=== PATIENT | female | born 1990 | race Two or more races ===

== ENCOUNTER 2024-11-16 11:10 | Outpatient (AMB) | payer MEDICAID, SELFPAY ==
[2024-11-16 11:32] VITALS: BP 109/74; PULSE 90; RESP 18; TEMP 36.7; O2SAT 96; BMI 34.2
--- NOTE | 2024-11-16 11:32 | OBCLNT_ITS ---
Vital Signs 11/16/24 11:32 Height 1.63 m Height Method Stated Weight 90.378 kg Weight Measurement Method Standing Scale BMI 34.2 BP 109/74 Blood Pressure Source Automatic Cuff Blood Pressure Location Right Upper Arm Position Sitting Respiration 18 Pulse 90 Pulse Source Monitor Temp 98.1 F Temp Source Temporal Artery Scan Pulse Oximetry (%) 96 Oxygen Delivery Method Room Air Allergies/Home Meds Allergies & Medications Allergies No Known Allergies Allergy (Verified 11/16/24 11:33) Medication Reconciliation Unobtainable 11/16/24 [History Confirmed 11/16/24] Intake Visit Data Collection New Patient or Established: New Patient (never been to [facility]) Reason for Visit:: OBI TRANSFER Seen by Clinical Staff ONLY (RN/MA): No Berry Grower Required: Yes Berry Grower's name/title: TONYA ALEGRIA Do You Feel Safe at Home: Yes Authorities Contacted: N/A PCP or OBGYN visit in last 3 months: No Hx Now: Yes Are you currently on any form of Control: No Pain Present Currently: No Pain Scale Used: Dias-Langston/Numerical Pain scale:: 0 Smoking Status Smoking Status: Never smoker Questionnaires Covid-19 Vaccine Questionnaire Has patient been vacinated for Covid-19 Have you been vacinated for Covid-19: No PHQ-9 PHQ-2 Over the last 2 weeks, how often have you been bothered by any of the following problems? 1. Little interest or pleasure in doing things: not at all 2. Feeling down, depressed, or hopeless: not at all Total score: 0 PHQ-9 3. Trouble falling or staying asleep, or sleeping too much: Not at all 4. Feeling tired or having little energy: Not at all 5. Poor appetite or overeating: Not at all 6. Feeling bad about yourself - or that you are a failure or have let yourself or your family down: Not at all 7. Trouble concentrating on things, such as reading the newspaper or watching television: Not at all 8. Moving or speaking so slowly that other people could have noticed? - Or the opposite - being so fidgety or restless that you have been moving around a lot more than usual: not at all 9. Thoughts that you would be better off or of hurting yourself in some way: Not at all Total score: 0 If you checked off any problems, how difficult have these problems made it for you to do your work, take care of things at home, or get along with other people?: not difficult at all Source: Developed by Drs. Dimitri Horta, Lily Curry, Sukumar Mayo and colleagues, with an educational gray from [employer]. Depression screen completed yes Social History Living Situation History Marital Status: Lives With: Family Housing: House Tobacco History Smoking Status: Never smoker Second Hand Smoke Exposure: No Alcohol History Alcohol Intake: Never Domestic Abuse History Do You Feel Safe at Home: Yes History of Present Illness HPI Narrative Patient is a 34-year-old woman at 34 weeks and 1 day gestation, presenting for transfer of care from [facility]. Her medical history is significant for obesity, pre-existing type 2 diabetes mellitus, and a previous section. Last menstrual period was 03/22/2024, with an estimated due date of 12/27/2024. Patient is currently taking metformin 850 mg once daily, iron supplementation, and ASA 162 mg. Blood sugar logs show fasting levels between 90-100 and 2-hour postprandial levels between 100-107. Patient was initially considering a vaginal after (), but upon learning that [place] does not allow VBACs for patients with previous C-sections, she is now planning for a repeat . She was informed that pursuing a vaginal delivery would require referral to facilities in [place] or [place]. Patient reports active movement and denies any contractions. She has no current complaints or concerns and did not report any changes in her overall health status or daily functioning. Obstetric history includes 1 previous section and 1 spontaneous . Medical history also includes cholecystectomy. Patient has no known drug allergies and is Portuguese-speaking, requiring an hourly sign language interpreter. OB Initial Visit Menstrual History Menstrual reliability: unknown Flow: heavy Menstrual regularity: irregular Monthly: No Age at menarche: 13 On control pills at conception: No Exam General General Appearance: alert, in no apparent distress and healthy appearing Head Head exam: atraumatic Neck Neck exam: Present normal inspection and trachea midline Chest Chest inspection: Present normal inspection and symmetric chest wall rise External exam: Present normal external exam; Absent tenderness Neuro Neurological exam: Present oriented X3 Psych Psychiatric exam: Present normal affect and normal mood Office Procedures OB Clinic LOC & Office Proc's Nursing/Assessment Patient Status: Initial/New Patient OB Clinic Nursing Assessment: Medication Reconciliation, Update PMH in EMR and Vital Signs OB Clinic Coordination of Care: Complex Care and Chronic Disease 1-5, Consent,records obtained, informed consent, Education Simp Pt/Fam and Staff clarify orders Special Needs: Heart tones New Patient Charge New Patient Point Assignment: [id number] New Patient Point Charge: BARREL ASSEMBLER Level 3 ([id number]) Assessment & Plan Diagnosis / Problem List (1) Supervision of high risk , unspecified, third trimester: Status: Acute (2) Maternal care for unspecified type scar from previous delivery: Status: Acute Plan : - Patient is 34-year-old at 34 weeks 1 day gestation. - History of one prior section and one spontaneous . - Anatomy survey within normal limits, placenta accreta screening low risk. - Schedule repeat section for approximately 12/20/2024. - Follow up in 2 weeks. - Inform patient about option at alternative hospitals if desired. - Continue ASA 162 mg daily. - Continue iron supplementation. Type 2 Diabetes Mellitus: - Pre-existing condition with good glycemic control. - Recent fasting levels 90-100 mg/dL, 2-hour postprandial 100-107 mg/dL. - Continue metformin 850 mg once daily. - Continue monitoring blood glucose levels. Obesity: - History of obesity noted. - Continue to monitor weight gain during . - Provide dietary and exercise counseling as appropriate.
== END 2024-11-16 11:53 | disposition home or self-care (01) ==
LOC: HODSOBC 11:10
PROVIDERS: Supervising Provider Obstetrics & Gynecology; Visit Provider Obstetrics & Gynecology
DX: O09.293 Supervision of pregnancy with other poor reproductive or obstetric history, third trimester (principal); O34.219 Maternal care for unspecified type scar from previous cesarean delivery; Z3A.34 34 weeks gestation of pregnancy; O09.893 Supervision of other high risk pregnancies, third trimester; O24.113 Pre-existing type 2 diabetes mellitus, in pregnancy, third trimester; O99.213 Obesity complicating pregnancy, third trimester; Z79.84 Long term (current) use of oral hypoglycemic drugs
CPT/HCPCS: 99203; G0463

== ENCOUNTER 2024-11-23 08:33 | Outpatient (AMB) | payer MEDICAID, SELFPAY ==
[2024-11-23 08:59] VITALS: BP 115/81; PULSE 92; RESP 17; TEMP 36.6; O2SAT 96; BMI 34.3
--- NOTE | 2024-11-23 08:59 | AMB.OBVISIT ---
Vital Signs 11/23/24 08:59 Height 1.63 m Height Method Measured Weight 91.229 kg Weight Measurement Method Standing Scale BMI 34.3 BP 115/81 Blood Pressure Source Automatic Cuff Blood Pressure Location Right Upper Arm Position Sitting Respiration 17 Pulse 92 Pulse Source Monitor Temp 97.8 F Temp Source Temporal Artery Scan Pulse Oximetry (%) 96 Oxygen Delivery Method Room Air Allergies/Home Meds Allergies & Medications Allergies No Known Allergies Allergy (Verified 11/23/24 09:00) Medication Reconciliation Unobtainable 11/16/24 [History Confirmed 11/23/24] Intake Visit Data Collection New Patient or Established: Established Patient (seen at [facility] within 3 years) Reason for Visit:: OBC WEEKLY Consent obtained for Telemed Visit: No Seen by Clinical Staff ONLY (RN/MA): No Computer Equipment Installer Required: No Do You Feel Safe at Home: Yes Authorities Contacted: N/A PCP or OBGYN visit in last 3 months: Yes Date of Last PCP or OBGYN visit: 11/16/24 Hx Now: Yes Are you currently on any form of Control: No Pain Present Currently: No Pain Scale Used: Dias-Langston/Numerical Pain scale:: 0 Smoking Status Smoking Status: Never smoker Questionnaires Covid-19 Vaccine Questionnaire Has patient been vacinated for Covid-19 Have you been vacinated for Covid-19: Yes PHQ-9 PHQ-2 Over the last 2 weeks, how often have you been bothered by any of the following problems? 1. Little interest or pleasure in doing things: not at all PHQ-9 8. Moving or speaking so slowly that other people could have noticed? - Or the opposite - being so fidgety or restless that you have been moving around a lot more than usual: not at all Source: Developed by Drs. Dimitri Horta, Lily Curry, Sukumar Mayo and colleagues, with an educational gray from [employer]. Social History Living Situation History Lives With: Family Housing: House Tobacco History Smoking Status: Never smoker Second Hand Smoke Exposure: No Alcohol History Alcohol Intake: Never Domestic Abuse History Do You Feel Safe at Home: Yes Care OB Visit Log OB Flowsheet Initial Weight: Not Recorded Date <del>?</del> EGA Weight BP Alb Glu CTX Pres Fundal ht FHR Mov Dilation Station Effacement Hx Notes Visit Note 11/23/24 <del>?</del> 35w 1d 91.229 kg 115/81 absent unknown 36 145 active at 35w1d here for routine visit, scheduled for repeat 12/20/24. No CTX/LOF/VB, reports good FM. GBS swab collected. Counseled that not permitted at this facility but available at [facility] if desired. Plan: return in 2wks for final pre-op visit. Instructed to go to hospital if CTX q5min. CORRY Calculator Estimated Delivery Date Method Current WG Current Estimate 12/27/24 LMP (Certain) 35w 4d Office Procedures OB Clinic LOC & Office Proc's Nursing/Assessment Patient Status: Established Patient OB Clinic Nursing Assessment: Medication Reconciliation, Update PMH in EMR and Vital Signs OB Clinic Coordination of Care: Complex Care and Chronic Disease 1-5, Consent,records obtained, informed consent, Education Simp Pt/Fam and 4+ Authorizations needed Special Needs: Heart tones Established Patient Charge Established Patient Point Assignment: 130 Established Patient Point Charge: EP Level 4 (120-155) Assessment & Plan Diagnosis / Problem List (1) Maternal care for unspecified type scar from previous delivery: Status: Acute (2) Supervision of high risk , unspecified, third trimester: Status: Acute Plan Problem List - , 35 weeks and 1 day - History of section Assessment 34-year-old female at 35 weeks and 1 day gestation, presenting for routine OB-RN COMMUNITY visit. Patient is scheduled for repeat section on 12/20/2024. No reported contractions or other problems. movement is present. Group B Streptococcus (GBS) culture swab was performed during the visit. Patient is informed about the hospital's policy regarding vaginal after (). Plan - Scheduled for repeat on December 20, 2024 - Next appointment scheduled for the week after next, which will be the last appointment before the - Patient instructed to time contractions if they occur - Patient advised to go to the hospital if contractions occur every 5 minutes - Informed patient that vaginal delivery is not allowed at this hospital per policy, but is an option at [place]. 1. Progress Reviewed gestational age, growth, and heart rate. Planned frequent visits (every 2 weeks until 36 weeks, then weekly). 2. Instructed patient to monitor movements and report decreases immediately. 3. Testing Counseled on routine third-trimester labs per guidelines. Discussed potential need for ultrasound or monitoring based on risk factors. 4. Preeclampsia Precaution Educated on preeclampsia signs: severe headache, vision changes, right upper quadrant pain, sudden swelling. Advised urgent reporting of symptoms and discussed blood pressure monitoring if high risk. 5. Labor Precautions Reviewed labor signs: regular contractions, pelvic pressure, back pain, bleeding, or fluid leakage. Instructed to seek immediate care for these symptoms. 6. Lifestyle and Delivery Preparation Reinforced vitamins, nutrition, and safe activity. Discussed plan, pain management, and . Advised on labor preparation (e.g., hospital bag) and expectations. 7. Psychosocial Support Assessed emotional well-being and offered resources for mental health or parenting support.
== END 2024-11-23 09:54 | disposition home or self-care (01) ==
LOC: HODSOBC 08:33
PROVIDERS: Supervising Provider Obstetrics & Gynecology; Visit Provider Obstetrics & Gynecology
DX: O09.293 Supervision of pregnancy with other poor reproductive or obstetric history, third trimester (principal); O34.219 Maternal care for unspecified type scar from previous cesarean delivery; Z3A.35 35 weeks gestation of pregnancy
CPT/HCPCS: 99214; G0463

== ENCOUNTER 2024-12-03 14:46 | Outpatient (AMB) | payer MEDICAID, SELFPAY ==
[2024-12-03 15:09] VITALS: BP 119/78; PULSE 92; RESP 17; TEMP 36.7; O2SAT 97; BMI 34.3
--- NOTE | 2024-12-03 15:09 | OBCLNT_ITS ---
Vital Signs 12/03/24 15:09 Height 1.63 m Height Method Measured Weight 91.229 kg Weight Measurement Method Standing Scale BMI 34.3 BP 119/78 Blood Pressure Source Automatic Cuff Blood Pressure Location Right Upper Arm Position Sitting Respiration 17 Pulse 92 Pulse Source Monitor Temp 98.0 F Temp Source Temporal Artery Scan Pulse Oximetry (%) 97 Oxygen Delivery Method Room Air Allergies/Home Meds Allergies & Medications Allergies No Known Allergies Allergy (Verified 01/11/25 14:14) Medication Reconciliation vit no.95-ferrous fumarate 28 mg-folic acid 800 mcg tablet () 1 tab PO QDAY 12/17/24 [History Confirmed 01/11/25] hydrocodone 5 mg-acetaminophen 325 mg tablet 1 tab PO Q4HR Patient rated pain 7 to 8 #14 tabs 12/19/24 [Rx Confirmed 01/11/25] metformin 850 mg tablet 850 mg PO QDAY #30 tabs 12/19/24 [Rx Confirmed 01/11/25] Intake Visit Data Collection New Patient or Established: Established Patient (seen at [facility] within 3 years) Reason for Visit:: OBC Consent obtained for Telemed Visit: No Seen by Clinical Staff ONLY (RN/MA): No Student Affairs Vice President Required: No Do You Feel Safe at Home: Yes Authorities Contacted: N/A PCP or OBGYN visit in last 3 months: Yes Date of Last PCP or OBGYN visit: 11/23/24 Hx Now: Yes Are you currently on any form of Control: No Pain Present Currently: No Pain Scale Used: Dias-Langston/Numerical Pain scale:: 0 Smoking Status Smoking Status: Never smoker Questionnaires Covid-19 Vaccine Questionnaire Has patient been vacinated for Covid-19 Have you been vacinated for Covid-19: No PHQ-9 PHQ-2 Over the last 2 weeks, how often have you been bothered by any of the following problems? 1. Little interest or pleasure in doing things: not at all PHQ-9 8. Moving or speaking so slowly that other people could have noticed? - Or the opposite - being so fidgety or restless that you have been moving around a lot more than usual: not at all Source: Developed by Drs. Dimitri Horta, Lily Curry, Sukumar Mayo and colleagues, with an educational gray from [employer]. Social History Living Situation History Lives With: Family Housing: House Tobacco History Smoking Status: Never smoker Second Hand Smoke Exposure: No Alcohol History Alcohol Intake: Never Domestic Abuse History Do You Feel Safe at Home: Yes Care OB Visit Log OB Flowsheet Initial Weight: Not Recorded Date -?-?-?-?-?-?-?-?-?-?-?-?- EGA Weight BP Alb Glu CTX Pres Fundal ht FHR Mov Dilation Station Effacement Hx Notes Visit Note 11/23/24 -?-?-?-?-?-?-?-?-?-?-?-?- 35w 1d 91.229 kg 115/81 absent unknown 36 145 active at 35w1d here for routine visit, scheduled for repeat 12/20/24. No CTX/LOF/VB, reports good FM. GBS swab collected. Counseled that not permitted at this facility but available at [facility] if desired. Plan: return in 2wks for final pre-op visit. Instructed to go to hospital if CTX q5min. 12/03/24 -?-?-?-?-?-?-?-?-?-?-?-?- 36w 4d 91.229 kg 119/78 absent unknown 37 152 active History of prior delivery. No contractions, LOF, VB and reports goo d FM. Denies YOUNG, VC, and epigastric pain. - 34-year-old female, 2 para 1, presenting for routine visit at 36 weeks and 4 days gestation - History of previous - Scheduled for repeat on 2024 - Patient denies contractions or other p roblems - Reports baby is always active - No specific complaints or concerns mentioned Plan - Scheduled for repeat on 2024 - Follow-up appointment in 2 weeks for marcelino sullivan instructions - Provider to sales review clerk report a nd contact patient if additional recommendations - Patient instructed to go to hospital i f needed, at any time CORRY Calculator Estimated Delivery Date Method Current WG Current Estimate 12/27/24 LMP (Certain) 44w 6d Specific Issue/Plans MFM Ultrasound at 36w3d * Single live intrauterine at 36w3d (CORRY 12/27/2024) * Cephalic presentation * Large for gestational age (LGA) fetus with estimated weight (EFW) of 3868g (>99th percentile) * Abdominal circumference also >99th percentile * HC:AC ratio is normal (proportionately large fetus) * Projected EFW at 39 weeks: 4549g ? 454g * Mild polyhydramnios with STERLING 27.9 cm and single deepest pocket (SDP) 8.51 cm * anatomy: Normal as visualized * Placenta: Posterior; no previa (per prior exam) * Biophysical profile score: 12/17 (NST not included); reassuring status Office Procedures OB Clinic LOC & Office Proc's Nursing/Assessment Patient Status: Established Patient OB Clinic Nursing Assessment: Medication Reconciliation, Update PMH in EMR and Vital Signs OB Clinic Coordination of Care: Complex Care and Chronic Disease 1-5, Consent,records obtained, informed consent, Education Simp Pt/Fam and 4+ Authorizations needed Special Needs: Heart tones Established Patient Charge Established Patient Point Assignment: 130 Established Patient Point Charge: EP Level 4 (120-155) Assessment & Plan Diagnosis / Problem List (1) Maternal care for unspecified type scar from previous delivery: Status: Acute Qualifiers: Previous scar type: low transverse Qualified Code(s): O34.211 - Maternal care for low transverse scar from previous delivery Plan Problem List - , 36 weeks and 4 days gestation - History of section Assessment 36-year-old at 36 weeks and 4 days gestation presenting for routine visit. History of previous section. Scheduled for repeat section on 12/20/2024. Patient reports no contractions or other problems. heart rate auscultated at 152-153 bpm, within normal range. Patient reports normal movement. Plan - Scheduled for repeat on December 20, 2024 - Follow-up appointment in 2 weeks for surgery instructions - Provider to sales review clerk report and contact patient if additional recommendations - Patient instructed to go to hospital if needed, at any time 1. Progress Reviewed gestational age, growth, and heart rate. Planned frequent visits (every 2 weeks until 36 weeks, then weekly). 2. Instructed patient to monitor movements and report decreases immediately. 3. Testing Counseled on routine third-trimester labs per guidelines. Discussed potential need for ultrasound or monitoring based on risk factors. 4. Preeclampsia Precaution Educated on preeclampsia signs: severe headache, vision changes, right upper quadrant pain, sudden swelling. Advised urgent reporting of symptoms and discussed blood pressure monitoring if high risk. 5. Labor Precautions Reviewed labor signs: regular contractions, pelvic pressure, back pain, bleeding, or fluid leakage. Instructed to seek immediate care for these symptoms. 6. Lifestyle and Delivery Preparation Reinforced vitamins, nutrition, and safe activity. Discussed plan, pain management, and . Advised on labor preparation (e.g., hospital bag) and expectations. 7. Psychosocial Support Assessed emotional well-being and offered resources for mental health or parenting support.
== END 2024-12-03 15:42 | disposition home or self-care (01) ==
LOC: HODSOBC 14:46
PROVIDERS: Supervising Provider Obstetrics & Gynecology; Visit Provider Obstetrics & Gynecology
DX: O09.293 Supervision of pregnancy with other poor reproductive or obstetric history, third trimester (principal); Z3A.36 36 weeks gestation of pregnancy; O34.219 Maternal care for unspecified type scar from previous cesarean delivery
CPT/HCPCS: 99214; G0463

== ENCOUNTER 2024-12-17 09:31 | Outpatient (AMB) | payer MEDICAID, SELFPAY ==
[2024-12-17 10:09] VITALS: BP 134/88; PULSE 79; RESP 17; TEMP 36.4; O2SAT 97; BMI 35.2
--- NOTE | 2024-12-17 10:09 | OBCLNT_ITS ---
Vital Signs 12/17/24 10:09 Height 1.63 m Height Method Measured Weight 93.61 kg Weight Measurement Method Standing Scale BMI 35.2 BP 134/88 H Blood Pressure Source Automatic Cuff Blood Pressure Location Right Upper Arm Position Sitting Respiration 17 Pulse 79 Pulse Source Monitor Temp 97.5 F Temp Source Temporal Artery Scan Pulse Oximetry (%) 97 Oxygen Delivery Method Room Air Allergies/Home Meds Allergies & Medications Allergies No Known Allergies Allergy (Verified 02/22/25 14:13) Medication Reconciliation vit no.95-ferrous fumarate 28 mg-folic acid 800 mcg tablet () 1 tab PO QDAY 12/17/24 [History Confirmed 02/22/25] metformin 850 mg tablet 850 mg PO QDAY #30 tabs 12/19/24 [Rx Confirmed 02/22/25] Intake Visit Data Collection New Patient or Established: Established Patient (seen at [facility] within 3 years) Reason for Visit:: OBC Consent obtained for Telemed Visit: No Seen by Clinical Staff ONLY (RN/MA): No Outsole Skiver Required: No Do You Feel Safe at Home: Yes Authorities Contacted: N/A PCP or OBGYN visit in last 3 months: Yes Date of Last PCP or OBGYN visit: 12/03/24 Hx Now: Yes Are you currently on any form of Control: No Pain Present Currently: No Pain Scale Used: Dias-Langston/Numerical Pain scale:: 0 Smoking Status Smoking Status: Never smoker Questionnaires Covid-19 Vaccine Questionnaire Has patient been vacinated for Covid-19 Have you been vacinated for Covid-19: No PHQ-9 PHQ-2 Over the last 2 weeks, how often have you been bothered by any of the following problems? 1. Little interest or pleasure in doing things: not at all PHQ-9 3. Trouble falling or staying asleep, or sleeping too much: Not at all 4. Feeling tired or having little energy: Not at all 5. Poor appetite or overeating: Not at all 6. Feeling bad about yourself - or that you are a failure or have let yourself or your family down: Not at all 7. Trouble concentrating on things, such as reading the newspaper or watching television: Not at all 8. Moving or speaking so slowly that other people could have noticed? - Or the opposite - being so fidgety or restless that you have been moving around a lot more than usual: not at all 9. Thoughts that you would be better off or of hurting yourself in some way: Not at all If you checked off any problems, how difficult have these problems made it for you to do your work, take care of things at home, or get along with other people?: not difficult at all Source: Developed by Drs. Dimitri Horta, Lily Curry, Sukumar Mayo and colleagues, with an educational gray from [employer] Social History Living Situation History Lives With: Family Housing: House Tobacco History Smoking Status: Never smoker Second Hand Smoke Exposure: No Alcohol History Alcohol Intake: Never Domestic Abuse History Do You Feel Safe at Home: Yes Care OB Visit Log OB Flowsheet Initial Weight: Not Recorded Date -?-?-?-?-?-?-?-?-?-?-?-?- EGA Weight BP Alb Glu CTX Pres Fundal ht FHR Mov Dilation Station Effacement Hx Notes Visit Note 11/23/24 -?-?-?-?-?-?-?-?-?-?-?-?- 35w 1d 91.229 kg 115/81 absent unknown 36 145 active at 35w1d here for routine visit, scheduled for repeat 12/20/24. No CTX/LOF/VB, reports good FM. GBS swab collected. Counseled that not permitted at this facility but available at [facility] if desired. Plan: return in 2wks for final pre-op visit. Instructed to go to hospital if CTX q5min. 12/03/24 -?-?-?-?-?-?-?-?-?-?-?-?- 36w 4d 91.229 kg 119/78 absent unknown 37 152 active History of prior delivery. No contractions, LOF, VB and reports goo d FM. Denies YOUNG, VC, and epigastric pain. - 34-year-old female, 2 para 1, presenting for routine visit at 36 weeks and 4 days gestation - History of previous - Scheduled for repeat on 2024 - Patient denies contractions or other p roblems - Reports baby is always active - No specific complaints or concerns mentioned Plan - Scheduled for repeat on 2024 - Follow-up appointment in 2 weeks for marcelino sullivan instructions - Provider to review nurse report a nd contact patient if additional rec ommendations - Patient instructed to go to hospital i f needed, at any time 12/17/24 -?-?-?-?-?-?-?-?-?-?-?-?- 38w 4d 93.61 kg 134/88 absent unknown 39 155 active - Annamarie Thao is a female patient at 38 weeks and 4 days gestation presenting for routine care. - She is scheduled for a repeat C-sectio n on Friday, December 20, 2024. - Preoperative instructions were provide d to the patient. - Patient will arrive at the scheduled time for the procedure. - Repeat C- section scheduled for 12-20-2024 - Preoperative instructions given - Patient to arrive as per scheduled francisco e CORRY Calculator Estimated Delivery Date Method Current WG Current Estimate 12/27/24 LMP (Certain) 48w 1d Specific Issue/Plans MFM Ultrasound at 36w3d * Single live intrauterine at 36w3d (CORRY 12/27/2024) * Cephalic presentation * Large for gestational age (LGA) fetus with estimated weight (EFW) of 3868g (>99th percentile) * Abdominal circumference also >99th percentile * HC:AC ratio is normal (proportionately large fetus) * Projected EFW at 39 weeks: 4549g ? 454g * Mild polyhydramnios with STERLING 27.9 cm and single deepest pocket (SDP) 8.51 cm * anatomy: Normal as visualized * Placenta: Posterior; no previa (per prior exam) * Biophysical profile score: 8/8 (NST not included); reassuring status Assessment & Plan Diagnosis / Problem List (1) Maternal care for unspecified type scar from previous delivery: Status: Acute Qualifiers: Previous scar type: low transverse Qualified Code(s): O34.211 - Maternal care for low transverse scar from previous delivery Plan Problem List - - Scheduled repeat section Assessment Routine care visit at 38 weeks and 4 days gestation. Patient is scheduled for a repeat section. Plan - Repeat scheduled for 12-20-2024 - Preoperative instructions given - Patient to arrive as per scheduled time 1. Progress Reviewed gestational age, growth, and heart rate. Planned frequent visits (every 2 weeks until 36 weeks, then weekly). 2. Instructed patient to monitor movements and report decreases immediately. 3. Testing Counseled on routine third-trimester labs per guidelines. Discussed potential need for ultrasound or monitoring based on risk factors. 4. Preeclampsia Precaution Educated on preeclampsia signs: severe headache, vision changes, right upper quadrant pain, sudden swelling. Advised urgent reporting of symptoms and discussed blood pressure monitoring if high risk. 5. Labor Precautions Reviewed labor signs: regular contractions, pelvic pressure, back pain, bleeding, or fluid leakage. Instructed to seek immediate care for these symptoms. 6. Lifestyle and Delivery Preparation Reinforced vitamins, nutrition, and safe activity. Discussed plan, pain management, and . Advised on labor preparation (e.g., hospital bag) and expectations. 7. Psychosocial Support Assessed emotional well-being and offered resources for mental health or parenting support.
== END 2024-12-17 10:28 | disposition home or self-care (01) ==
LOC: HODSOBC 09:31
PROVIDERS: Supervising Provider Obstetrics & Gynecology; Visit Provider Obstetrics & Gynecology
DX: O09.293 Supervision of pregnancy with other poor reproductive or obstetric history, third trimester (principal); O34.219 Maternal care for unspecified type scar from previous cesarean delivery; Z3A.38 38 weeks gestation of pregnancy
CPT/HCPCS: 99213; G0463

== ENCOUNTER 2024-12-17 19:50 | Inpatient (IN) | payer MEDICAID, SELFPAY ==
[2024-12-17] VITALS (18 sets, daily range): BP systolic 119–139; BP diastolic 80–91; PULSE 64–82; RESP 18–98; TEMP 36.5–37.6; O2SAT 91–100; BMI 36.8
[2024-12-17 20:41] LABS: ROM Kit Lot # 5810237
[2024-12-17 20:42] LABS: ROM Swab Mixed By: YOUMB; Swb Mxed in Solvent 1 min? Yes
[2024-12-17 20:49] LABS: Rupture of Fetal Membranes Positive (Negative)
[2024-12-17] MEDS: RINGERS LACTATED 1000 ML 1,000 ML 100 ML IV (21:15)
[2024-12-17] MEDS: CITRIC ACID/SODIUM CITR 15 ML UDC (BICITRA) 30 ML PO (21:23)
[2024-12-17 21:24] LABS: Collection Type, Urine Clean Catch
[2024-12-17] MEDS: ceFAZolin/D5W 2 GM IV 2 GM/100 ML BAG IV (21:25)
[2024-12-17] MEDS: FAMOTIDINE INJ 10 MG/ML VIAL 2 ML 20 MG IV (21:26)
[2024-12-17] MEDS: METOCLOPRAMIDE INJ 5 MG/ML VIAL 2 ML 10 MG IVP (21:30)
[2024-12-17 21:35] LABS: Basophils # (Auto) 0.0 Thou/mm3 (0.0-0.2); Basophils % (Auto) 0 % (0-2.5); Eosinophils # (Auto) 0.0 Thou/mm3 (0.0-0.5); Eosinophils % (Auto) 0 % (0-10); Hematocrit 35.3 % (36.0-46.0); Hemoglobin 11.7 g/dL (12.0-16.0); Immature Granulocytes Auto 0.04 Thou/mm3 (0.00-0.00); Lymphocytes # (Auto) 1.8 Thou/mm3 (1.0-4.8); Lymphocytes % (Auto) 26 % (10-50); Mean Corpuscular HGB Conc 33.1 g/dl (31.0-37.0); Mean Corpuscular Hemoglobin 31.0 pg (25.0-35.0); Mean Corpuscular Volume 94 fL (80-100); Monocytes # (Auto) 0.6 Thou/mm3 (0.0-0.8); Monocytes % (Auto) 8 % (0-12); Neutrophils # (Auto) 4.6 Thou/mm3 (1.8-7.7); Neutrophils % (Auto) 66 % (37-80); Nucleated Red Blood Cell # 0.03 Thou/mm3 (0.00-0.00); Nucleated Red Blood Cell % 0 /100 WBC (0); Platelet Count 195 Thou/mm3 (140-440); RDW Standard Deviation 47.6 fL (36.4-46.3); Red Blood Count 3.77 Miln/mm3 (4.00-5.20); White Blood Count 6.9 Thou/mm3 (3.6-11.0)
[2024-12-17 21:43] LABS: Alanine Aminotransferase 22 U/L (10-49); Albumin, Serum 3.6 gm/dL (3.5-5.0); Albumin/Globulin Ratio 1.3 (1.2-2.2); Alkaline Phosphatase 276 U/L (46-116); Anion Gap 13 (7-16); Aspartate Amino Transferase 40 U/L (0-34); BUN/Creatinine Ratio 10 Ratio (12-20); Bilirubin,Total 0.9 mg/dL (0.3-1.2); Blood Urea Nitrogen 10 mg/dL (9-23); Calcium 9.0 mg/dL (8.3-10.6); Calcium (Corrected) 9.3 mg/dL (8.5-10.1); Carbon Dioxide 21.1 mMol/L (20.0-31.0); Chloride 106 mMol/L (98-107); Creatinine (Component) 1.0 mg/dL (0.6-1.3); Estimated Creatinine Clearance 86.6 mL/min (>60); Globulin 2.7 gm/dL (2.3-3.5); Glucose 150 mg/dL (74-106); LDH (Lactate Dehydrogenase) 177 U/L (120-246); Osmolality,Calculated 281 (275-295); Potassium 4.0 mMol/L (3.4-5.1); Sodium 140 mMol/L (136-145); Total Protein 6.3 gm/dL (5.7-8.2); Uric Acid 7.1 mg/dL (3.1-7.8); eGFR > 60 See Note
[2024-12-17 21:47] LABS: Amorphous Crystals,Urine Present (Absent); Bacteria,Urine Rare; Bilirubin,Urine Negative (Negative); Blood,Urine 1+ (Negative); Clarity,Urine Turbid (Clear/Hazy); Color,Urine Yellow (Lt Yel-Yel); Glucose, Urine Negative (Negative); Ketones,Urine Negative (Negative); Leukocyte Esterase,Urine Positive (Negative); Nitrite,Urine Negative (Negative); PH,Urine 7.0 (5.0-7.0); Protein,Urine Trace (Neg - Trace); RBC,Urine 15 /hpf (0-3); Specific Gravity,Urine 1.007 (1.001-1.035); Squamous Epithelial Cell,Urine 9 /hpf (0-5); Urobilinogen,Urine Negative mg/dL (0.0-1.0); WBC,Urine 12 /hpf (0-5)
[2024-12-17 21:48] LABS: Fibrinogen 538 mg/dL (175-375); INR 0.9 (0.9-1.3); Partial Thromboplastin Time 24.5 Seconds (22.0-36.0); Prothrombin Time 10.4 Seconds (9.0-12.2)
[2024-12-17 22:15] LABS: Creatinine,Random Urine 67 mg/dL (30-125); Protein Total, Random Urine 34 mg/dL (1-14)
[2024-12-17 22:16] LABS: Syphilis Nonreactive (Nonreactive)
[2024-12-17 22:20] LABS: HIV (1&2) Antibody Rapid Non-Reactive
--- NOTE | 2024-12-17 22:58 | PD.LDHP ---
Documentation for date of: 12/17/24 OB Labor/Induct. HPI History of Present Illness Chief complaint: Ruptured membranes, previous : 4 Para: 1 Term pregnancies: 1 pregnancies: 0 Living children: 1 History of Abortions: Spontaneous and Elective: 2 History of Vaginal deliveries: 0 History of sections: Yes History of : No CORRY: 12/27/24 Gestational Age (weeks): 38 Gestational Age (days): 4 History of present illness: The patient is a 34-year-old -0-2-1 at 38-4/7 weeks with an EDC of 12/27/2024 who presented reporting ruptured membranes at 1900 on 12/17/2024 . Patient has a history of a previous . care was started with Dr. Godfrey and transferred to Dr. Vasquez at 34 weeks. She is a qoi-qgrnslf-fsfdwinks diabetic on metformin prior to . Her hemoglobin A1c's during were 5.6-6.0. Patient was scheduled next week for a repeat . She was found to be eric on the monitor and grossly ruptured with meconium stained fluid and was consented for repeat low-transverse section. Of note the patient is Frisian-speaking only and all consents were obtained through an official health technical writer service. History of Present Dating criteria: LMP confirmed by 2nd trimester US Adequate Care: Yes Ultrasounds: normal mid trimester US Abnormal ultrasound findings: Normal and echo level 2 ultrasound Obstetrical complications: other (Suspected large for gestational age ) Medical complications: other (Pre-existing yat-hhndmjh-cmhwgeojp diabetes on metformin) Labs Maternal Blood Type: B Pos Labs: Positive: Rubella Titre, Negative: RPR, Hepatitis B, HIV and Group Beta Strep and Unknown: Chlamydia, Gonorrhea, Herpes Type 1, Herpes Type 2 and Covid-19 Past Medical History Surgical History SURGICAL: Positive Section Past Medical History Comments PMH COMMENT: Patient had a cyst history of x 1 in [place] in 2019 she had a history of a gallbladder removal in 2019 she is a blt-tjxvhtj-mhrpkusma diabetic on metformin prior to . Meds Home Medications and Allergies Home Medications ?Medication ?Instructions ?Recorded ?Confirmed ?Type metformin 850 mg tablet 850 mg PO QDAY 12/17/24 12/17/24 History vit no.95-ferrous 1 tab PO QDAY 12/17/24 12/17/24 History fumarate 28 mg-folic acid 800 mcg tablet () Allergies Allergy/AdvReac Type Severity Reaction Status Date / Time No Known Allergies Allergy Verified 12/17/24 10:10 OB Exam Physical Exam Vital signs: Temp Pulse Resp BP Pulse Ox 99.6 F 67 20 139/91 H 98 12/17/24 20:06 12/17/24 20:51 12/17/24 20:06 12/17/24 20:51 12/17/24 20:57 Constitutional Constitutional: no acute distress Routine Neck Exam Neck: Present supple and trachea midline Routine Cardiovascular Exam Cardiovascular: Present RRR Routine Abdominal Exam Abdominal: Present soft and normoactive bowel sounds Routine Extremities Exam Extremities: Present full ROM Routine Skin Exam Skin: Present intact, dry and warm Routine Psychiatric Exam Psychiatric: Present normal affect and normal thought process OB Results Labs 12/17/24 21:00 12/17/24 20:52 Labs: Short CBC 12/17/24 Range/Units 21:00 WBC 6.9 (3.6-11.0) Thou/mm3 Hgb 11.7 L (12.0-16.0) g/dL Hct 35.3 L (36.0-46.0) % Plt Count 195 (140-440) Thou/mm3 BMP 12/17/24 20:52 Sodium 140 Potassium 4.0 Chloride 106 Carbon Dioxide 21.1 BUN 10 Creatinine 1.0 Glucose 150 H Calcium 9.0 Liver Function 12/17/24 Range/Units 20:52 Total Bilirubin 0.9 (0.3-1.2) mg/dL AST 40 H (0-34) U/L ALT 22 (10-49) U/L Alkaline Phosphatase 276 H (46-116) U/L Albumin 3.6 (3.5-5.0) gm/dL Urine 12/17/24 Range/Units 21:00 Urine Color Yellow (Lt Yel-Yel) Urine Clarity Turbid A (Clear/Hazy) Urine pH 7.0 (5.0-7.0) Ur Specific Fred 1.007 (1.001-1.035) Urine Protein Trace (Neg - Trace) Urine Glucose (UA) Negative (Negative) OB Assessment & Plan Assessment and Plan (1) Supervision of high risk , unspecified, third trimester: Status: Acute (2) Gestational diabetes mellitus (GDM): Status: Acute (3) Large for gestational age fetus affecting management of mother: Status: Acute Additional Plan Additional Plan Comment: Consented for repeat section. The risks of the procedure were discussed with the patient through the heavy equipment service manager including the risk of bleeding, infection, blood transfusion, damage to bowel, bladder, blood vessels, other organs. Prolonged hospital stay and further surgery should any above occur. All questions were answered all consents were signed. (2) Gestational diabetes mellitus (GDM) Qualifiers: Gestational diabetes mellitus control: oral hypoglycemic-controlled Trimester: third trimester Qualified Code(s): O24.415 - Gestational diabetes mellitus in , controlled by oral hypoglycemic drugs (3) Large for gestational age fetus affecting management of mother Qualifiers: Fetus number: single or unspecified fetus Trimester: third trimester Qualified Code(s): O36.63X0 - Maternal care for excessive growth, third trimester, not applicable or unspecified
--- NOTE | 2024-12-17 23:09 | ESOP_ITS ---
Operative Note - RAMP BOSS Procedure Date of procedure: 12/17/24 Procedure Performed: Repeat low-transverse section Indication: The patient is a 34-year-old -0-2-1 history of x 1 in 2019 in [place]. She started her care with Dr. Godfrey and was transferred to Dr. Vasquez at 34 weeks. She is diabetic prior to , with her blood sugars controlled with metformin 850 twice a day. Patient's hemoglobin A1c dur ing was in the 5-6 range. On presentation, the patient was found to be grossly ruptured in triage. She stated she ruptured her membranes at 1900 on 12/17/2024. She was 38-4/7 weeks. She had meconium stained fluid on the Chux. She was eric regularly. Her abdominal girth on presentation was large with a suspected 10 pound baby. Her previous baby was 7 pounds. She was consented for repeat low-transverse section. The patient is Libyan- speaking only and all consents were done through an official translating service. Pre-Op diagnosis: 1. IUP 38-4/7 weeks 2. Previous section 3. Ruptured membranes 4. Pre-existing bzg-wvbnmla-gccmimxry diabetes on metformin 5. Suspected large for gestational age Post-Op diagnosis: Same Anesthesia type: Spinal Procedure description: After obtaining informed consent, the patient was brought back to the operating room and spinal anesthesia administered. She was then prepped and draped in the dorsal supine position with a leftward tilt in a normal sterile fashion. A Edmond catheter was inserted into the patient's bladder. Patient was given 2 g of Ancef by anesthesia. A Pfannenstiel skin incision was made through the patient's prior scar and carried down to the underlying fascia. The fascia was incised in the midline, and the fascial incision extended laterally using Small scissors. The superior aspect of the fascia was grasped with Jaime clamps, and the underlying rectus muscles dissected off using blunt and sharp dissection. This was repeated in the inferior aspect the incision. The rectus muscle were in the midline and the peritoneum was picked up and entered sharply with a scalpel. This was extended superiorly and inferiorly with good visualization of the bladder. The bladder blade was inserted and the uterus was incised in a low transverse fashion using a scalpel above the bladder reflection. The uterine incision was extended laterally using blunt dissection with the surgeon's fingers. The bag of kaur was ruptured and light meconium noted. The bladder blade was removed and the infant was delivered atraumatically. Of note the infant was found to be vigorous and crying. The cord was clamped and cut and the infant was handed off to the waiting pediatric staff port. Cord blood and cord gases were sent. The placenta was then manually removed and handed off the operating field. The uterus was exteriorized and cleared of all clots and debris. The uterine incision was repaired with 0 Monocryl in a running locked fashion. Excellent hemostasis was noted. The uterus was returned to the patient's abdominal cavity and copious irrigation carried out with warm normal saline. The uterine incision was reexamined and noted to be hemostatic. Due to a little bit of bogginess of the uterus, the patient was given IM Methergine. The uterine tone was then much improved. After ensuring the rectus muscles were hemostatic, these were reapproximated in the midline using a running suture of 0 Monocryl. The fascia was closed with 0 Vicryl in a running fashion. The subcutaneous tissues were irrigated and found to be hemostatic. These were reapproximated using a running suture of 2-0 plain. The skin was closed with a subcuticular suture of 4-0 Monocryl. The patient tolerated the procedure well, sponge, lap, needle, and instrument counts were correct x 2. The patient went to the recovery area awake and in stable condition. Of note the baby went to the NICU for observation secondary to decreased saturations. Fluids: crystalloid Fluid amount (mL): 3,000 Urine output (mL): 100 Specimen: none Implants: None Estimated blood loss (ml): 600 Findings: Liveborn male OA no nuchal cord and light meconium Apgars were 6 6 and 7 weight was 10 pounds 3 ounces the placenta was complete spontaneous grossly normal tubes uterus ovaries appeared grossly normal. Of note there was very little scar tissue present in the patient's abdomen. Also of note due to the low scores, with a vigorous infant, blood gases were sent. pH arterial cord was normal at 7.27 base excess arterial -1.5. pH umbilical vein 7.29 base excess umbilical vein -1.4. Complications: none Surgical staff HAILE Neely Operation Date: 12/17/24 21:45 <No data on this case meets the specified criteria> Diagnosis Discharge Diagnosis (1) Large for gestational age fetus affecting management of mother: Status: Acute (2) Gestational diabetes mellitus (GDM): Status: Acute (3) Maternal care for unspecified type scar from previous delivery: Status: Acute Problem List Completed Was Problem List Reviewed/Reconciled?: Yes (1) Large for gestational age fetus affecting management of mother Qualifiers: Fetus number: single or unspecified fetus Trimester: third trimester Qualified Code(s): O36.63X0 - Maternal care for excessive growth, third trimester, not applicable or unspecified (2) Gestational diabetes mellitus (GDM) Qualifiers: Gestational diabetes mellitus control: oral hypoglycemic-controlled Trimester: third trimester Qualified Code(s): O24.415 - Gestational diabetes mellitus in , controlled by oral hypoglycemic drugs (3) Maternal care for unspecified type scar from previous delivery Qualifiers: Previous scar type: low transverse Qualified Code(s): O34.211 - Maternal care for low transverse scar from previous delivery
[2024-12-17] MEDS: OXYTOCIN in NS 20 units 20 UNIT/1,000 ML BAG 125 UNIT IV (23:23)
[2024-12-17] MEDS: ONDANSETRON INJ 2 MG/ML INJ 2 ML 4 MG IV (23:23)
[2024-12-17 23:32] LABS: Amphetamine/Metham Scrn,Ur OB Negative (Negative); Benzoylecgonine Screen, Ur OB Negative (Negative); Opiate Screen,Urine OB Negative (Negative); THC Screen,Urine OB Negative (Negative)
[2024-12-18] VITALS (12 sets, daily range): BP systolic 109–142; BP diastolic 71–90; PULSE 61–88; RESP 16–20; TEMP 36.8–37; O2SAT 95–99
[2024-12-18] MEDS: ONDANSETRON INJ 2 MG/ML INJ 2 ML 4 MG IV (05:11)
[2024-12-18] MEDS: KETOROLAC INJ 30 MG/ML VIAL IVP ×4 (05:12→23:57)
[2024-12-18 06:02] LABS: Basophils # (Auto) 0.0 Thou/mm3 (0.0-0.2); Basophils % (Auto) 0 % (0-2.5); Eosinophils # (Auto) 0.0 Thou/mm3 (0.0-0.5); Eosinophils % (Auto) 0 % (0-10); Hematocrit 31.1 % (36.0-46.0); Hemoglobin 10.2 g/dL (12.0-16.0); Immature Granulocytes Auto 0.08 Thou/mm3 (0.00-0.00); Lymphocytes # (Auto) 1.6 Thou/mm3 (1.0-4.8); Lymphocytes % (Auto) 14 % (10-50); Mean Corpuscular HGB Conc 32.8 g/dl (31.0-37.0); Mean Corpuscular Hemoglobin 30.9 pg (25.0-35.0); Mean Corpuscular Volume 94 fL (80-100); Monocytes # (Auto) 0.8 Thou/mm3 (0.0-0.8); Monocytes % (Auto) 7 % (0-12); Neutrophils # (Auto) 8.8 Thou/mm3 (1.8-7.7); Neutrophils % (Auto) 78 % (37-80); Nucleated Red Blood Cell # 0.03 Thou/mm3 (0.00-0.00); Nucleated Red Blood Cell % 0 /100 WBC (0); Platelet Count 171 Thou/mm3 (140-440); RDW Standard Deviation 48.0 fL (36.4-46.3); Red Blood Count 3.30 Miln/mm3 (4.00-5.20); White Blood Count 11.3 Thou/mm3 (3.6-11.0)
--- NOTE | 2024-12-18 07:23 | PC.NURSE ---
[address] Molina for Toradol 30mg IVP Q6hr [facility].
--- NOTE | 2024-12-18 08:34 | PD.LDPPPRG ---
Subjective Subjective Interval history: patient is vomiting x 3 she still has a Edmond catheter/ and urine is very concentrated and she has low urinary output through the night and this morning . will try iv fluid bolus Exam Vital Signs Temp Pulse Resp BP Pulse Ox O2 Del Method 98.2 F 78 16 124/83 97 Room Air 12/18/24 07:06 12/18/24 07:06 12/18/24 07:06 12/18/24 07:06 12/18/24 07:06 12/18/24 07:06 Narrative Exam Patient is about 12 hours postop and needed general anesthesia and is vomiting plan reglan and clears po and Iv bolus for low urinary output / Leave Edmond in Constitutional Constitutional: mild distress, obese and cooperative Routine Respiratory Exam Respiratory: Present chest non-tender, lungs clear, normal breath sounds, no resp distress and CTA bilaterally Routine Cardiovascular Exam Cardiovascular: Present RRR Routine Abdominal Exam Abdominal: Present soft and normoactive bowel sounds Comments: soft abdomen uterus firm dressing Clean, dry and intact Routine Extremities Exam Extremities: Present full ROM and pulses intact Comments: no calf tenderness Routine Skin Exam Skin: Present intact and normal turgor Routine Neurological Exam Neurological: Present alert, oriented X3 and normal speech Objective Labs 12/18/24 09:11 12/18/24 09:11 Labs: Laboratory Results - last 24 hr 12/17/24 12/17/24 12/17/24 20:31 20:52 21:00 WBC 6.9 RBC 3.77 L Hgb 11.7 L Hct 35.3 L MCV 94 MCH 31.0 MCHC 33.1 RDW Std Deviation 47.6 H Plt Count 195 Neut % (Auto) 66 Lymph % (Auto) 26 Jasper % (Auto) 8 Eos % (Auto) 0 Baso % (Auto) 0 Neut # (Auto) 4.6 Lymph # (Auto) 1.8 Jasper # (Auto) 0.6 Eos # (Auto) 0.0 Baso # (Auto) 0.0 Immature Gran # (Auto) 0.04 H Absolute Nucleated RBC 0.03 H Immature Gran % 1 H Nucleated RBC % 0 PT INR APTT Fibrinogen Sodium 140 Potassium 4.0 Chloride 106 Carbon Dioxide 21.1 Anion Gap 13 BUN 10 Creatinine 1.0 Estim Creat Clear Calc 86.6 eGFR > 60 BUN/Creatinine Ratio 10 L Glucose 150 H Calculated Osmolality 281 Uric Acid 7.1 Calcium 9.0 Corrected Calcium 9.3 Total Bilirubin 0.9 AST 40 H ALT 22 Alkaline Phosphatase 276 H Lactate Dehydrogenase 177 Total Protein 6.3 Albumin 3.6 Globulin 2.7 Albumin/Globulin Ratio 1.3 Ur Collection Type Clean Catch Urine Color Yellow Urine Clarity Turbid A Urine pH 7.0 Ur Specific Greenfield 1.007 Urine Protein Trace Urine Glucose (UA) Negative Urine Ketones Negative Urine Blood 1+ A Urine Nitrite Negative Urine Bilirubin Negative Urine Urobilinogen (Auto) Negative Ur Leukocyte Esterase Positive Urine RBC 15 H Urine WBC 12 H Ur Squamous Epith Cells 9 H Amorphous Crystals Present A Urine Bacteria Rare Ur Random Creatinine 67 U Random Total Protein 34 H Membrane Rupture Positive A Urine Opiates Screen U Amphetamin/Meth Scrn U Cocaine Metab Screen U Marijuana (THC) Screen Syphilis Serology Nonreactive HIV 1&2 Antibody Rapid Non-Reactive Blood Type B Positive Antibody Screen NEGATIVE Blood Bank Wristband ID Yes 12/17/24 12/17/24 12/18/24 21:14 23:00 05:23 WBC 11.3 H D RBC 3.30 L Hgb 10.2 L Hct 31.1 L MCV 94 MCH 30.9 MCHC 32.8 RDW Std Deviation 48.0 H Plt Count 171 Neut % (Auto) 78 Lymph % (Auto) 14 Jasper % (Auto) 7 Eos % (Auto) 0 Baso % (Auto) 0 Neut # (Auto) 8.8 H Lymph # (Auto) 1.6 Jasper # (Auto) 0.8 Eos # (Auto) 0.0 Baso # (Auto) 0.0 Immature Gran # (Auto) 0.08 H Absolute Nucleated RBC 0.03 H Immature Gran % 1 H Nucleated RBC % 0 PT 10.4 INR 0.9 APTT 24.5 Fibrinogen 538 H Sodium Potassium Chloride Carbon Dioxide Anion Gap BUN Creatinine Estim Creat Clear Calc eGFR BUN/Creatinine Ratio Glucose Calculated Osmolality Uric Acid Calcium Corrected Calcium Total Bilirubin AST ALT Alkaline Phosphatase Lactate Dehydrogenase Total Protein Albumin Globulin Albumin/Globulin Ratio Ur Collection Type Urine Color Urine Clarity Urine pH Ur Specific [place] Urine Protein Urine Glucose (UA) Urine Ketones Urine Blood Urine Nitrite Urine Bilirubin Urine Urobilinogen (Auto) Ur Leukocyte Esterase Urine RBC Urine WBC Ur Squamous Epith Cells Amorphous Crystals Urine Bacteria Ur Random Creatinine U Random Total Protein Membrane Rupture Urine Opiates Screen Negative U Amphetamin/Meth Scrn Negative U Cocaine Metab Screen Negative U Marijuana (THC) Screen Negative Syphilis Serology HIV 1&2 Antibody Rapid Blood Type Antibody Screen Blood Bank Wristband ID Assessment & Plan Problem List (1) Large for gestational age fetus affecting management of mother: Status: Acute (2) Gestational diabetes mellitus (GDM): Status: Acute Assessment and plan: monitoring glucose (3) Maternal care for unspecified type scar from previous delivery: Status: Acute Assessment and plan: repeat LTCS (4) Post-operative nausea and vomiting: Status: Acute Assessment and plan: start iv reglan Clears po only /order CMP and CBC (5) Oliguria after procedure: Status: Acute Assessment and plan: Iv fluid bolus and if no improvement in urine output then repeat iv bolus and 10 mgm iv Lasix Leave Edmond in CMP ordered Plan Comment Plan Comment: check Glucose / clears only now / metformin hold Time Spent With Patient Time: Total time spent is greater than 50% in coordination of care (as documented) at patient's floor/unit and/or counseling patient: Time with patient: 25 - 35 minutes
[2024-12-18] MEDS: DOCUSATE SOD 100 MG CAPSULE PO (08:36)
[2024-12-18] MEDS: OXYTOCIN in NS 20 units 20 UNIT/1,000 ML BAG 125 UNIT IV (08:37)
[2024-12-18 09:08] LABS: Chlamydia trachomatis PCR Negative (Not Detect); Neisseria Gonorrhoeae DNA PCR Negative (Not Detect); Trichomonas Negative (Negative)
[2024-12-18 10:02] LABS: Basophils # (Auto) 0.0 Thou/mm3 (0.0-0.2); Basophils % (Auto) 0 % (0-2.5); Eosinophils # (Auto) 0.0 Thou/mm3 (0.0-0.5); Eosinophils % (Auto) 0 % (0-10); Hematocrit 29.5 % (36.0-46.0); Hemoglobin 9.5 g/dL (12.0-16.0); Immature Granulocytes Auto 0.05 Thou/mm3 (0.00-0.00); Lymphocytes # (Auto) 1.6 Thou/mm3 (1.0-4.8); Lymphocytes % (Auto) 17 % (10-50); Mean Corpuscular HGB Conc 32.2 g/dl (31.0-37.0); Mean Corpuscular Hemoglobin 30.5 pg (25.0-35.0); Mean Corpuscular Volume 95 fL (80-100); Monocytes # (Auto) 0.5 Thou/mm3 (0.0-0.8); Monocytes % (Auto) 6 % (0-12); Neutrophils # (Auto) 7.2 Thou/mm3 (1.8-7.7); Neutrophils % (Auto) 77 % (37-80); Nucleated Red Blood Cell # 0.03 Thou/mm3 (0.00-0.00); Nucleated Red Blood Cell % 0 /100 WBC (0); Platelet Count 167 Thou/mm3 (140-440); RDW Standard Deviation 49.0 fL (36.4-46.3); Red Blood Count 3.11 Miln/mm3 (4.00-5.20); White Blood Count 9.4 Thou/mm3 (3.6-11.0)
[2024-12-18] MEDS: METOCLOPRAMIDE INJ 5 MG/ML VIAL 2 ML 10 MG IVP (10:08)
[2024-12-18] MEDS: SODIUM CHLORIDE 0.9% 500 ML 500 ML 999 ML IV (10:09)
[2024-12-18 10:39] LABS: Alanine Aminotransferase 18 U/L (10-49); Albumin, Serum 2.7 gm/dL (3.5-5.0); Albumin/Globulin Ratio 1.2 (1.2-2.2); Alkaline Phosphatase 205 U/L (46-116); Anion Gap 13 (7-16); Aspartate Amino Transferase 38 U/L (0-34); BUN/Creatinine Ratio 7 Ratio (12-20); Bilirubin,Total 0.8 mg/dL (0.3-1.2); Blood Urea Nitrogen 8 mg/dL (9-23); Calcium 8.3 mg/dL (8.3-10.6); Calcium (Corrected) 9.3 mg/dL (8.5-10.1); Carbon Dioxide 19.4 mMol/L (20.0-31.0); Chloride 109 mMol/L (98-107); Creatinine (Component) 1.1 mg/dL (0.6-1.3); Estimated Creatinine Clearance 78.7 mL/min (>60); Globulin 2.2 gm/dL (2.3-3.5); Glucose 135 mg/dL (74-106); Osmolality,Calculated 281 (275-295); Potassium 4.3 mMol/L (3.4-5.1); Sodium 141 mMol/L (136-145); Total Protein 4.9 gm/dL (5.7-8.2); eGFR > 60 See Note
[2024-12-18] MEDS: RINGERS LACTATED 500 ML 500 ML 999 ML IV (13:35)
[2024-12-18] MEDS: FUROSEMIDE INJ 10 MG/ML VIAL 2 ML IVP (14:03)
--- NOTE | 2024-12-18 14:45 | PC.CC ---
Annamarie Prater is a 34-year-old female admitted for labor and delivery care. Check Viewer made contact with Pt at bedside to complete ob assessment and discuss discharge disposition. Role and reason for the contact was explained to Pt. Demographic information was verified. Pt identified father of baby Kevin Jamison [phone] as surrogate decision maker. Pt is independent with all ADLs, no source of DME. PCP is Jeanette Tessie. At time of discharge patient will return home, FOB will provide transportation. Mother plans on formula feeing, has car seat, and all supplies for baby. Mother denies any use of substance, no DV, no CPS. Mother reports support system provided by extended family. Discharge Plan: Home Next of Kin: Kevin Shaheen [phone] PCP: [facility] Tessie
--- NOTE | 2024-12-18 16:24 | PD.LDDELS ---
Data ([facility]) Data Hx Section: Yes Maternal Blood Type: B Pos Rubella Titre: Positive RPR: Non-reactive Labs: Negative: RPR, Hepatitis B, HIV, Chlamydia and Gonorrhea and Unknown: Herpes Type 1, Herpes Type 2 and Group Beta Strep : 4 Term: 1 : 0 Livin Abortions: Spontaneous & Theraputic: 2 Delivery Data (Chaney) Labor Data Induction/Augmentation Agent: None ROM date: 12/17/24 ROM time: 19:00 Amniotic membrane rupture type: Spontaneous Amniotic fluid description: Moderate Meconium Delivery Data EDC: 12/27/24 EDC calculated by:: LMP Date of arrival to unit: 12/17/24 Time of arrival to unit: 20:00 Onset of labor date: 12/17/24 Onset of labor time: 19:00 delivery date: 12/17/24 delivery time: 22:15 Gestational age (weeks): 38 Gestational age (days): 4 Placenta delivery date: 12/17/24 Placenta delivery time: 21:17 Delivered by: Al[facility]a Mol[facility] ([facility]) Delivery nurse: blank Falcon nurse: jax Corporate Communications Intern at delivery: No Support person(s) at delivery: yes, FOB Delivery Method Delivery method: Low Transverse Presentation: Vertex position: OA Anesthesia Type Anesthesia Type: Spinal Anesthesia type: Spinal Delivery Room Medications Delivery room medications: Methergine 0.2 mg IM, Pitocin 20 u IV and See Anesthesia record Placenta Placenta delivery description: Manual Removal cord blood collection: Cord Blood Type, Arterial Cord Blood Gas and Venous Cord Blood Gas Episiotomy Episiotomy description: None EBL Estimated blood loss (ml): 600 Umbilical Cord cord description: 3 Vessels Additional Procedures See OP report Complications Complications: None [place] Data ([place]aney) Data order: 1 [place]'s gender: Male weight (gms): 4620.972 g Weight (pounds): 10 lbs and 3.0 ozs 1 minute: 7 5 minutes: 7 Additional Comments Additional comments: Blood Gases drawn and WNL on baby's chart
[2024-12-18] MEDS: RINGERS LACTATED 1000 ML 1,000 ML 100 ML IV (17:36)
[2024-12-19 03:59] VITALS: BP 116/80; PULSE 83; RESP 16; TEMP 36.8; O2SAT 95
[2024-12-19] MEDS: RINGERS LACTATED 1000 ML 1,000 ML 100 ML IV (04:40)
[2024-12-19] MEDS: KETOROLAC INJ 30 MG/ML VIAL IVP (05:47)
[2024-12-19 06:30] LABS: Basophils # (Auto) 0.0 Thou/mm3 (0.0-0.2); Basophils % (Auto) 0 % (0-2.5); Eosinophils # (Auto) 0.0 Thou/mm3 (0.0-0.5); Eosinophils % (Auto) 1 % (0-10); Hematocrit 25.2 % (36.0-46.0); Immature Granulocytes Auto 0.04 Thou/mm3 (0.00-0.00); Lymphocytes # (Auto) 2.1 Thou/mm3 (1.0-4.8); Lymphocytes % (Auto) 25 % (10-50); Mean Corpuscular HGB Conc 32.9 g/dl (31.0-37.0); Mean Corpuscular Hemoglobin 31.3 pg (25.0-35.0); Mean Corpuscular Volume 95 fL (80-100); Monocytes # (Auto) 0.6 Thou/mm3 (0.0-0.8); Monocytes % (Auto) 7 % (0-12); Neutrophils # (Auto) 5.4 Thou/mm3 (1.8-7.7); Neutrophils % (Auto) 67 % (37-80); Nucleated Red Blood Cell # 0.00 Thou/mm3 (0.00-0.00); Nucleated Red Blood Cell % 0 /100 WBC (0); Platelet Count 188 Thou/mm3 (140-440); RDW Standard Deviation 50.0 fL (36.4-46.3); Red Blood Count 2.65 Miln/mm3 (4.00-5.20); White Blood Count 8.1 Thou/mm3 (3.6-11.0)
[2024-12-19 06:37] LABS: Hemoglobin 8.3 g/dL (12.0-16.0)
[2024-12-19 07:10] LABS: Alanine Aminotransferase 15 U/L (10-49); Albumin, Serum 2.8 gm/dL (3.5-5.0); Albumin/Globulin Ratio 1.3 (1.2-2.2); Alkaline Phosphatase 183 U/L (46-116); Anion Gap 13 (7-16); Aspartate Amino Transferase 27 U/L (0-34); BUN/Creatinine Ratio 9 Ratio (12-20); Bilirubin,Total 0.5 mg/dL (0.3-1.2); Blood Urea Nitrogen 9 mg/dL (9-23); Calcium 8.1 mg/dL (8.3-10.6); Calcium (Corrected) 9.1 mg/dL (8.5-10.1); Carbon Dioxide 20.5 mMol/L (20.0-31.0); Chloride 105 mMol/L (98-107); Creatinine (Component) 1.0 mg/dL (0.6-1.3); Estimated Creatinine Clearance 86.6 mL/min (>60); Globulin 2.1 gm/dL (2.3-3.5); Glucose 190 mg/dL (74-106); Osmolality,Calculated 279 (275-295); Potassium 4.0 mMol/L (3.4-5.1); Sodium 138 mMol/L (136-145); Total Protein 4.9 gm/dL (5.7-8.2); eGFR > 60 See Note
[2024-12-19] MEDS: DOCUSATE SOD 100 MG CAPSULE PO (08:22)
[2024-12-19 08:30] VITALS: BP 109/73; PULSE 90; RESP 18; TEMP 36.7; O2SAT 96
[2024-12-19] MEDS: HYDROcodone/APAP 5/325 TABLET 1 TAB PO ×2 (08:34→15:19)
--- NOTE | 2024-12-19 15:08 | ESPR_ITS ---
Subjective Subjective Interval history: feeling better , Nausea and vomiting is resolved but has only voided 150 cc since the Edmond got removed 3 hours ago / voiding well now and would like to go home Exam Vital Signs Temp Pulse Resp BP Pulse Ox O2 Del Method 98.0 F 90 18 109/73 96 Room Air 12/19/24 08:30 12/19/24 08:30 12/19/24 08:30 12/19/24 08:30 12/19/24 08:30 12/19/24 08:30 Narrative Exam Alert x 3, no more nausea vomiting passing flatus,, lochia minimal Abdomen soft bowel sounds present dressing clean and dry incision clean Has appropriate tenderness No CV angle tenderness Normal respiratory exam and normal cardiovascular exam Cooperative normal speech Ukrainian-speaking Routine Extremities Exam Extremities: Present full ROM and pulses intact Comments: no calf tendereness Routine Neurological Exam Neurological: Present alert, oriented X3, normal reflexes and normal speech Routine Psychiatric Exam Psychiatric: Present normal affect, normal thought process and cooperative Objective Labs 12/19/24 05:24 12/19/24 18:19 Labs: Laboratory Results - last 24 hr 12/19/24 05:24 WBC 8.1 RBC 2.65 L Hgb 8.3 L Hct 25.2 L MCV 95 MCH 31.3 MCHC 32.9 RDW Std Deviation 50.0 H Plt Count 188 Neut % (Auto) 67 Lymph % (Auto) 25 [place] % (Auto) 7 Eos % (Auto) 1 Baso % (Auto) 0 Neut # (Auto) 5.4 Lymph # (Auto) 2.1 [place] # (Auto) 0.6 Eos # (Auto) 0.0 Baso # (Auto) 0.0 Immature Gran # (Auto) 0.04 H Absolute Nucleated RBC 0.00 Immature Gran % 1 H Nucleated RBC % 0 Sodium 138 Potassium 4.0 Chloride 105 Carbon Dioxide 20.5 Anion Gap 13 BUN 9 Creatinine 1.0 Estim Creat Clear Calc 86.6 eGFR > 60 BUN/Creatinine Ratio 9 L Glucose 190 H D Calculated Osmolality 279 Calcium 8.1 L Corrected Calcium 9.1 Total Bilirubin 0.5 AST 27 ALT 15 Alkaline Phosphatase 183 H D Total Protein 4.9 L Albumin 2.8 L Globulin 2.1 L Albumin/Globulin Ratio 1.3 Assessment & Plan Problem List (1) Large for gestational age fetus affecting management of mother: Problem details: had a repeat LTCS Status: Acute (2) Gestational diabetes mellitus (GDM): Problem details: patient is on Metformin Status: Acute Assessment and plan: continue (3) Maternal care for unspecified type scar from previous delivery: Problem details: repeat LTCS done 12/18/2024 Status: Acute Assessment and plan: wound care and follow up with her ObGYN in 1 week with sugar log Fasting and HS (4) Post-operative nausea and vomiting: Problem details: resolved POD # 2 Status: Acute (5) Oliguria after procedure: Problem details: resolved after iv fluid bolus and Iv Lasix on POD 1 Status: Acute Assessment and plan: Not voiding optimally after removal of Edmond catheter / Plan to measure voided urine and repeat Renal panel today Assessment Comment Assessment comment: renal panel is normal and she can go home Time Spent With Patient Time: Total time spent is greater than 50% in coordination of care (as documented) at patient's floor/unit and/or counseling patient: Time with patient: 25 - 35 minutes
[2024-12-19 15:30] VITALS: BP 132/88; PULSE 81; RESP 19; TEMP 36.7; O2SAT 99
[2024-12-19 18:48] LABS: Alanine Aminotransferase 18 U/L (10-49); Albumin, Serum 3.3 gm/dL (3.5-5.0); Albumin/Globulin Ratio 1.4 (1.2-2.2); Alkaline Phosphatase 178 U/L (46-116); Anion Gap 10 (7-16); Aspartate Amino Transferase 32 U/L (0-34); BUN/Creatinine Ratio 9 Ratio (12-20); Bilirubin,Total 0.4 mg/dL (0.3-1.2); Blood Urea Nitrogen 8 mg/dL (9-23); Calcium 8.9 mg/dL (8.3-10.6); Calcium (Corrected) 9.5 mg/dL (8.5-10.1); Carbon Dioxide 23.2 mMol/L (20.0-31.0); Chloride 106 mMol/L (98-107); Creatinine (Component) 0.9 mg/dL (0.6-1.3); Estimated Creatinine Clearance 96.2 mL/min (>60); Globulin 2.4 gm/dL (2.3-3.5); Glucose 218 mg/dL (74-106); Osmolality,Calculated 282 (275-295); Potassium 4.2 mMol/L (3.4-5.1); Sodium 139 mMol/L (136-145); Total Protein 5.7 gm/dL (5.7-8.2); eGFR > 60 See Note
[2024-12-19 19:05] VITALS: BP 136/87; PULSE 77; RESP 16; TEMP 36.6; O2SAT 98
[2024-12-19] MEDS: IBUPROFEN TAB 400 MG TABLET 800 MG PO (20:02)
[2024-12-19 21:34] VITALS: BP 129/88; PULSE 92; RESP 16; TEMP 36.9; O2SAT 96
== END 2024-12-19 22:20 | disposition home or self-care (01) | DRG 540 ==
LOC: S4SX 20:54 → S4NX 22:27
PROVIDERS: Obstetrics & Gynecology; Admitting Provider Obstetrics & Gynecology; Visit Provider Obstetrics & Gynecology
PROC: 10D00Z1 Extraction of Products of Conception, Low, Open Approach (ICD-10-PCS; CPT 59514; principal; 2024-12-17 21:30)
DX: O34.211 Maternal care for low transverse scar from previous cesarean delivery (principal); O24.425 Gestational diabetes mellitus in childbirth, controlled by oral hypoglycemic drugs; O36.63X0 Maternal care for excessive fetal growth, third trimester, not applicable or unspecified; Z37.0 Single live birth; Z3A.38 38 weeks gestation of pregnancy; O77.0 Labor and delivery complicated by meconium in amniotic fluid; Z79.84 Long term (current) use of oral hypoglycemic drugs
CPT/HCPCS: 36415; 59025; 59409; 80053; 80307; 81001; 82570; 83615; 84112; 84156; 84550; 85025; 85384; 85610; 85730; 86703; 86780; 86850; 86900; 86901; 87491; 87591; 87661; 94762; A4314; A4649; J0689; J1200; J1885; J1938; J2210; J2274; J2371; J2405; J2590; J2765; J3010; J3490; J7120; J7999; A9270; J2270

== ENCOUNTER 2025-01-11 14:06 | Outpatient (AMB) | payer MEDICAID, SELFPAY ==
[2025-01-11 14:13] VITALS: BP 119/79; PULSE 93; RESP 16; TEMP 36.2; O2SAT 98
--- NOTE | 2025-01-11 14:13 | OBCLNT_ITS ---
Vital Signs 01/11/25 14:13 Weight 85.729 kg Weight Measurement Method Standing Scale BP 119/79 Blood Pressure Source Automatic Cuff Blood Pressure Location Left Upper Arm Position Sitting Respiration 16 Pulse 93 Pulse Source Monitor Temp 97.2 F Temp Source Oral Pulse Oximetry (%) 98 Oxygen Delivery Method Room Air Allergies/Home Meds Allergies & Medications Allergies No Known Allergies Allergy (Verified 01/11/25 14:14) Medication Reconciliation vit no.95-ferrous fumarate 28 mg-folic acid 800 mcg tablet () 1 tab PO QDAY 12/17/24 [History Confirmed 01/11/25] hydrocodone 5 mg-acetaminophen 325 mg tablet 1 tab PO Q4HR Patient rated pain 7 to 8 #14 tabs 12/19/24 [Rx Confirmed 01/11/25] metformin 850 mg tablet 850 mg PO QDAY #30 tabs 12/19/24 [Rx Confirmed 01/11/25] Intake Visit Data Collection New Patient or Established: Established Patient (seen at [facility] within 3 years) Reason for Visit:: OBC Seen by Clinical Staff ONLY (RN/MA): No Commonwealth Attorney Required: No Do You Feel Safe at Home: Yes Authorities Contacted: N/A PCP or OBGYN visit in last 3 months: Yes Date of Last PCP or OBGYN visit: 12/19/24 Hx Now: Yes Are you currently on any form of Control: No Pain Present Currently: No Pain Scale Used: Dias-Langston/Numerical Pain scale:: 0 Smoking Status Smoking Status: Never smoker Questionnaires Covid-19 Vaccine Questionnaire Has patient been vacinated for Covid-19 Have you been vacinated for Covid-19: Yes PHQ-9 PHQ-2 Over the last 2 weeks, how often have you been bothered by any of the following problems? 1. Little interest or pleasure in doing things: not at all 2. Feeling down, depressed, or hopeless: not at all Total score: 0 PHQ-9 3. Trouble falling or staying asleep, or sleeping too much: Not at all 4. Feeling tired or having little energy: Not at all 5. Poor appetite or overeating: Not at all 6. Feeling bad about yourself - or that you are a failure or have let yourself or your family down: Not at all 7. Trouble concentrating on things, such as reading the newspaper or watching television: Not at all 8. Moving or speaking so slowly that other people could have noticed? - Or the opposite - being so fidgety or restless that you have been moving around a lot more than usual: not at all 9. Thoughts that you would be better off or of hurting yourself in some way: Not at all Total score: 0 If you checked off any problems, how difficult have these problems made it for you to do your work, take care of things at home, or get along with other people?: not difficult at all Source: Developed by Drs. Dimitri Horta, Lily Curry, Sukumar Mayo and colleagues, with an educational gray from [employer]. 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 The patient reports that her baby is doing well. She is currently or bottle feeding. The incision site was examined during the visit, with the tape being removed. The skin at the incision site has already joined up, indicating good healing progress. Annamarie was advised about the importance of wearing a white-colored belt for an additional 2 weeks to prevent up and down motion and promote faster skin healing. No specific complaints or concerns were mentioned by the patient during this follow-up visit. Tobacco Smoking Status: Never smoker Care OB Visit Log OB Flowsheet Initial Weight: Not Recorded Date -?-?-?-?-?-?-?-?-?-?-?-?- EGA Weight BP Alb Glu CTX Pres Fundal ht FHR Mov Dilation Station Effacement Hx Notes Visit Note 11/23/24 -?-?-?-?-?-?-?-?-?-?-?-?- 35w 1d 91.229 kg 115/81 absent unknown 36 145 active at 35w1d here for routine visit, scheduled for repeat 12/20/24. No CTX/LOF/VB, reports good FM. GBS swab collected. Counseled that not permitted at this facility but available at [facility] if desired. Plan: return in 2wks for final pre-op visit. Instructed to go to hospital if CTX q5min. CORRY Calculator Estimated Delivery Date Method Current WG Current Estimate 12/27/24 LMP (Certain) 42w 2d Specific Issue/Plans MFM Ultrasound at 36w3d * Single live intrauterine at 36w3d (CORRY 12/27/2024) * Cephalic presentation * Large for gestational age (LGA) fetus with estimated weight (EFW) of 3868g (>99th percentile) * Abdominal circumference also >99th percentile * HC:AC ratio is normal (proportionately large fetus) * Projected EFW at 39 weeks: 4549g ? 454g * Mild polyhydramnios with STERLING 27.9 cm and single deepest pocket (SDP) 8.51 cm * anatomy: Normal as visualized * Placenta: Posterior; no previa (per prior exam) * Biophysical profile score: 8/8 (NST not included); reassuring status Exam Narrative Physical exam: - Abdomen: incision site examined. Skin has joined up at the incision site. Incision appears to be healing well. General General Appearance: alert, in no apparent distress and healthy appearing Head Head exam: atraumatic Neck Neck exam: Present normal inspection and trachea midline Chest Chest inspection: Present normal inspection and symmetric chest wall rise External exam: Present normal external exam; Absent tenderness Neuro Neurological exam: Present oriented X3 Psych Psychiatric exam: Present normal affect and normal mood Office Procedures OB Clinic LOC & Office Proc's Nursing/Assessment Patient Status: Established Patient OB Clinic Nursing Assessment: Medication Reconciliation, Update PMH in EMR and Vital Signs OB Clinic Coordination of Care: Education Complex Pt/Fam, Consent,records obtained, informed consent, Lab and Imaging orders, Results/Orders obtained and Staff clarify orders Special Needs: Heart tones Established Patient Charge Established Patient Point Assignment: 115 Established Patient Point Charge: EP Level 3 (80-115) Assessment & Plan Diagnosis / Problem List (1) Routine Follow-Up: Plan Status post section Assessment: Patient is approximately 3 weeks status post section performed on December 17, 2024. Surgical site appears to be healing well with skin edges already joined. Patient reports the baby is doing well. Plan: - Continue wearing white postoperative belt for an additional 2 weeks to prevent up and down motion and promote skin healing - Follow-up appointment scheduled in 1 month
== END 2025-01-11 14:25 | disposition home or self-care (01) ==
LOC: HODSOBC 14:06
PROVIDERS: Supervising Provider Obstetrics & Gynecology; Visit Provider Obstetrics & Gynecology
DX: Z39.2 Encounter for routine postpartum follow-up (principal)
CPT/HCPCS: 99213; G0463

== ENCOUNTER 2025-02-22 13:58 | Outpatient (AMB) | payer MEDICAID, SELFPAY ==
[2025-02-22 14:12] VITALS: BP 125/81; PULSE 78; RESP 16; TEMP 36.6; O2SAT 98; BMI 35.0
--- NOTE | 2025-02-22 14:12 | AMBOBPPN_ITS ---
Vital Signs 02/22/25 14:12 Height 1.6 m Height Method Stated Weight 89.811 kg Weight Measurement Method Standing Scale BMI 35.0 BP 125/81 Blood Pressure Source Automatic Cuff Blood Pressure Location Left Upper Arm Position Sitting Respiration 16 Pulse 78 Pulse Source Monitor Temp 97.9 F Temp Source Oral Pulse Oximetry (%) 98 Oxygen Delivery Method Room Air Allergies/Home Meds Allergies & Medications Allergies No Known Allergies Allergy (Verified 03/08/25 13:42) Medication Reconciliation vit no.95-ferrous fumarate 28 mg-folic acid 800 mcg tablet () 1 tab PO QDAY 12/17/24 [History Confirmed 02/22/25] metformin 850 mg tablet 850 mg PO QDAY #30 tabs 12/19/24 [Rx Confirmed 02/22/25] Intake Visit Data Collection New Patient or Established: Established Patient (seen at [facility] within 3 years) Reason for Visit:: Seen by Clinical Staff ONLY (RN/MA): No Streetcar Operator Required: Yes Streetcar Operator's name/title: FLAKITO BLACK Do You Feel Safe at Home: Yes Authorities Contacted: N/A PCP or OBGYN visit in last 3 months: Yes Hx Now: No Are you currently on any form of Control: Yes Last menstrual period: 02/22/25 Pain Present Currently: No Pain Scale Used: Dias-Langston/Numerical Pain scale:: 0 Smoking Status Smoking Status: Never smoker 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 Past Medical History: No Hx Neurological Disorders, No Hx Breast Cancer, No Hx Cardiac Disorders, No Hx Cancer, No Hx Blood Disorders, No Hx Gastrointestinal Disorders, No Hx Renal Disease, No Hx Diabetes Mellitus Type 1, No Hx Diabetes Mellitus Type 2, No Hx Tubal Ligation and No Hx Hysterectomy Questionnaires Covid-19 Vaccine Questionnaire Has patient been vacinated for Covid-19 Have you been vacinated for Covid-19: Yes Social History Living Situation History Lives With: Family Housing: House Tobacco History Smoking Status: Never smoker Second Hand Smoke Exposure: No Alcohol History Alcohol Intake: Never Domestic Abuse History Do You Feel Safe at Home: Yes EPDS - PP Depression Screening [place] Pospartum Depression Screen I have been able to laugh and see the funny side of things: (0) As much as I always could I have looked forward with enjoyment to things: (0) As much as I ever did I have blamed myself unnecessarily when things went wrong: (0) No, never I have been anxious or worried for no good reason: (0) No, not at all I have felt scared or panicky for no very good reason: (0) No, not at all Things have been getting on top of me: (0) No, I have been coping as well as ever I have been so unhappy that I have had difficulty sleeping: (0) No, not at all I have felt sad or miserable: (0) No, not at all I have been so unhappy that I have been crying: (0) No, never The thought of harming myself has occurred to me: (0) Never Total Score: EPDS Score: Referral is indicated for score of 9 or more, suicidal, or if provider believes patient is depressed regardless of score.: 0 EPDS completed yes HPI Interval History: Annamarie Thao is a 34-year-old female presenting for routine visit following section delivery on December 17, 2024, having completed 2 months . The patient reports that her baby is doing well. She has already received contraceptive injection and has the remainder for her next due date. The patient inquires about some area of concern, described as appearing normal with residual stitch materials that are expected to completely dissolve over the next month. She has a history of section on December 17, 2024. The patient has been taking control injection, already received with remainder for next due date. She is a 34-year-old female with an obstetric history of G1 T1 L1. ROS: Negative except as stated above, limited to NEWSPAPER PUBLISHER and pertinent complaints. Exam General General Appearance: alert, in no apparent distress and healthy appearing Head Head exam: atraumatic Neck Neck exam: Present normal inspection and trachea midline Chest Chest inspection: Present normal inspection and symmetric chest wall rise External exam: Present normal external exam; Absent tenderness Neuro Neurological exam: Present oriented X3 Psych Psychiatric exam: Present normal affect and normal mood Office Procedures OBC Clinic LOC & Office Proc's Nursing/Assessment Patient Status: Established Patient OB Clinic Nursing Assessment: Medication Reconciliation, Update PMH in EMR and Vital Signs OB Clinic Coordination of Care: Complex Care and Chronic Disease 1-5, Consent,records obtained, informed consent, Education Simp Pt/Fam, 1 Ins Authorization, Lab and Imaging orders and Staff clarify orders Established Patient Charge Established Patient Point Assignment: 115 Established Patient Point Charge: EP Level 3 (80-115) Assessment & Plan Diagnosis / Problem List (1) Encounter for routine follow-up: Status: Acute Plan Status Post Section: - 2 months following section delivery on December 17, 2024. - Recovering appropriately from surgical delivery. - Examination findings normal with residual stitch materials present internally, expected at this timeframe. Plan: - Stitch materials will continue to dissolve over the next month. - No further obstetric follow-up needed. - Return to primary care physician for ongoing management of blood pressure and diabetes. Contraception: - Patient has already received contraceptive injection. - Next injection scheduled for continuation of this method. Plan: - Continue current contraceptive injection regimen as scheduled.
== END 2025-02-22 14:35 | disposition home or self-care (01) ==
LOC: HODSOBC 13:58
PROVIDERS: Supervising Provider Obstetrics & Gynecology; Visit Provider Obstetrics & Gynecology
DX: Z39.2 Encounter for routine postpartum follow-up (principal)
CPT/HCPCS: 99213; G0463

== ENCOUNTER 2025-03-08 13:37 | Emergency (ER) | payer MEDICAID, SELFPAY ==
[2025-03-08 14:05] VITALS: BP 142/80; PULSE 77; RESP 16; TEMP 36.8; O2SAT 99; BMI 38.7
--- NOTE | 2025-03-08 14:07 | XR_ITS ---
EXAMINATION: Ankle, left 3 views. Technique: Ankle AP, oblique, lateral 3 views Date and time of exam: March 08, 2025, 1416 hours INDICATIONS: Injured ankle today, ankle pain. FINDINGS: Mild osteopenia. No ankle fracture or dislocation IMPRESSION: No ankle fracture or dislocation
--- NOTE | 2025-03-08 14:07 | PD.EDANKLE ---
Lower Extremity Injury RME/HPI General Chief Complaint: Ankle/Foot Injury Stated Complaint: FALL INJURING L) FOOT Time Seen by Provider: 03/08/25 14:01 Source: patient Arrival date/time: 03/08/25 13:37 34-year-old female with a history of type 2 diabetes presents to the emergency room with a chief complaint of left ankle swelling and tenderness after a ground-level fall that occurred 1 hour ago. Mode of arrival: ambulatory Limitations: no limitations Related Data Home Medications ?Medication ?Instructions ?Recorded ?Confirmed vit no.95-ferrous 1 tab PO QDAY 12/17/24 02/22/25 fumarate 28 mg-folic acid 800 mcg tablet () Previous Rx's ?Medication ?Instructions ?Recorded metformin 850 mg tablet 850 mg PO QDAY #30 tabs 12/19/24 Allergies Allergy/AdvReac Type Severity Reaction Status Date / Time No Known Allergies Allergy Verified 03/08/25 13:42 Review of Systems Review of Systems Systems Reviewed: All systems reviewed, normal except as documented Constitutional Constitutional: Reports system reviewed and no additional complaints, except as documented, Denies fatigue, Denies fever(s), Denies headache(s) and Denies weakness Eyes Eyes: Reports system reviewed and no additional complaints, except as documented, Denies blurry vision and Denies change in vision ENT Ears, Nose, Mouth, and Throat: Reports system reviewed and no additional complaints, except as documented, Denies otalgia, Denies headache(s), Denies nasal congestion, Denies throat swelling and Denies vertigo Cardiovascular Cardiovascular: Reports system reviewed and no additional complaints, except as documented, Denies chest pain, Denies dyspnea and Denies dyspnea on exertion Respiratory Respiratory: Reports system reviewed and no additional complaints, except as documented, Denies chest congestion, Denies cough, Denies dyspnea, Denies dyspnea on exertion and Denies wheezing Gastrointestinal Gastrointestinal: Reports system reviewed and no additional complaints, except as documented, Denies abdominal pain, Denies cramping, Denies nausea and Denies vomiting Genitourinary Genitourinary: Reports system reviewed and no additional complaints, except as documented Musculoskeletal Musculoskeletal: Reports system reviewed and no additional complaints, except as documented, Reports arthralgias, Denies back pain and Reports joint swelling Integumentary/Breasts Skin/Breast: Reports system reviewed and no additional complaints, except as documented and Denies wounds Neurologic Neurologic: Reports system reviewed and no additional complaints, except as documented, Denies confusion, Denies headache(s), Denies lack of coordination, Denies vertigo and Denies weakness Psychiatric Psychiatric: Reports system reviewed and no additional complaints, except as documented, Denies anxiety, Denies confusion, Denies depression, Denies paranoia, Denies suicidal ideation and Denies tactile hallucinations Endocrine Endocrine: Reports system reviewed and no additional complaints, except as documented and Denies fatigue Hematologic/Lymphatic Hematologic/Lymphatic: Reports system reviewed and no additional complaints, except as documented and Denies lymphadenopathy Allergic/Immunologic Allergic/Immunologic: Reports system reviewed and no additional complaints, except as documented, Denies throat swelling, Denies urticaria and Denies wheezing ED Exam General Limitations: Present no limitations General appearance: Present alert and in no apparent distress Head Head exam: Present atraumatic Eye Eye exam: Present normal appearance, PERRL and EOMI ENT ENT exam: Present normal exam, normal oropharynx and mucous membranes moist Neck Neck exam: Present normal inspection, full ROM and trachea midline Chest Chest inspection: Present normal inspection and symmetric chest wall rise Respiratory Respiratory exam: Present normal lung sounds bilaterally Cardiovascular Cardiovascular exam: Present regular rate, normal rhythm and normal heart sounds Abdominal Exam Abdominal exam: Present soft and normal bowel sounds Extremities Exam Extremities exam: Present normal inspection and full ROM Expanded Lower Extremity Exam Hip/Pelvis exam: Present normal inspection Upper leg exam: Present normal inspection Knee exam: Present normal inspection Ankle exam: Present tenderness and swelling Back Exam Back exam: Present normal inspection and full ROM Neurological Exam Neurological exam: Present alert, oriented X3 and CN II-XII intact Psychiatric Psychiatric exam: Present normal affect and normal mood Skin Skin exam: Present warm, dry, intact and normal color Course Quality Measures none Orders Category Date Time Status yajaira wrap [Splint / Immobilizer] STAT Care 03/08/25 14:07 Active XR ankle comp LT min 3V Stat Exams 03/08/25 14:07 Completed Ketorolac Inj [Toradol Inj] Med 03/08/25 14:07 Discontinued 30 mg IM X1 ONE Vital Signs Vital signs: Vital Signs Temperature 98.3 F 03/08/25 14:05 Pulse Rate 77 03/08/25 14:05 Respiratory Rate 16 03/08/25 14:05 Blood Pressure 142/80 H 03/08/25 14:05 Pulse Oximetry (%) 99 03/08/25 14:05 Oxygen Delivery Method Room Air 03/08/25 14:05 Extremity Injury, Lower MDM Narrative MDM Narrative:: 34-year-old female with a history of type 2 diabetes presents to the emergency room with a chief complaint of left ankle swelling and tenderness after a ground-level fall that occurred 1 hour ago. Patient is hemodynamically stable and in no apparent distress Physical examination shows tenderness and pain to the patient's left ankle. X-ray of the ankle was completed was negative for any acute fracture or dislocation Patient was discharged and educated to follow-up with primary care provider in the next 24 to 48 hours and return to the emergency room for any evidence of worsening signs or symptoms Patient data External records reviewed:: [facility] previous records Clinical information provided by:: patient Social determinants that could affect healthcare access:: none Patient has the following chronic illnesses:: No chronic illness How is presenting disease/condition affected by chronic disease/condition?: no chronic disease Evaluation data The following diagnostics were reviewed and interpreted by me:: lab results and radiology exam(s) Lab and/or radiology exams considered but not ordered:: Labs and radiology exams considered and ordered Interpretation Summary: Ankle [id number]: Mild osteopenia. No ankle fracture or dislocation IMPRESSION: No ankle fracture or dislocation Medications / Prescriptions Medications or Prescriptions considered but not ordered:: Medication given Medication administrations:: Medication Administration History Discontinued Medications Ketorolac Tromethamine (Ketorolac Inj 60 Mg/2 Ml Vial) 30 mg IM X1 ONE Stop: 03/08/25 14:08 Last Admin: 03/08/25 14:19 Dose: 30 mg Documented By: OA Medication given Consultations Consultation(s) initiated? (list below): No Diagnosis Extremity Injury, Lower Differential Diagnosis: ankle sprain and strain and ankle fracture Most likely diagnosis given after review of the tests above:: Ankle sprain strain Admission Indicated Admission indicated?: not indicated Admission Request Was there a request for admission?: No Disposition Plan Disposition Plan: Discharge Discharge Attestation Discharge Attestation: The patient and all family members were given an opportunity to ask questions and understood the discharge instructions. Discharge instructions specifically effects, indications for sooner follow up or return to the emergency department, and the expected course of current diagnosis. Patient condition: Stable Discharge Plan Plan Patient Disposition: HOME (Self Care) Discharge Disposition comment: Stable Prescriptions/Referrals Prescriptions/Med Rec: No Action PNV no.95-ferrous fumarate-FA [] 28 mg iron- 800 mcg tablet 1 tab PO QDAY metformin 850 mg tablet 850 mg PO QDAY Qty: 30 0RF Referrals: Pamela Tao NP [Primary Care Provider] - In 1 week Problem List Clinical Impression: Ankle sprain and strain Patient/Caregiver Discharge Instructions Additional Instructions: Por favor, consulte con stoll m?dico de cabecera en las pr?ximas 24 a 48 horas. Se realiz? bruno radiograf?a de stoll tobillo y el resultado fue negativo para cualquier fractura o luxaci?n aguda. Si hay alguna evidencia de empeoramiento de los signos o s?ntomas, regrese a la emily de emergencias inmediatamente. Print Language: Mosotho Stand Alone Forms: Ana Award Info., Work/School Release, Patient Portal Info Letter
[2025-03-08] MEDS: KETOROLAC INJ 60 MG/2 ML VIAL 30 MG IM (14:19)
== END 2025-03-08 15:20 | disposition home or self-care (01) ==
PROVIDERS: Emergency Provider Nurse Practitioner Family; PCP Nurse Practitioner Family
DX: S93.402A Sprain of unspecified ligament of left ankle, initial encounter (principal); W18.30XA Fall on same level, unspecified, initial encounter; E11.9 Type 2 diabetes mellitus without complications
CPT/HCPCS: 73610; 96372; 99283; J1885